=== PATIENT | male | born 1950 | race American Indian/Alaskan Native ===

== ENCOUNTER 2020-12-24 08:20 | Emergency (ER) | payer MEDICARE ==
[2020-12-24 09:18] VITALS: BP 172/96
--- NOTE | 2020-12-24 10:04 | XRay Report ---
RIGHT WRIST 3 VIEWS INDICATION: Right wrist pain after fall. COMPARISON: No relevant prior imaging study available. FINDINGS: No acute, displaced fracture or dislocation is seen. 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 No foreign bodies. IMPRESSION: 1. No acute findings. Signer Name: John Hurtado MD Signed: 12/24/2020 9:59 AM Workstation Name: [id number]
--- NOTE | 2020-12-24 10:07 | Emergency Department Report ---
ED Upper Extremity Inj HPI - General Chief Complaint: Extremity Injury, Upper Stated Complaint: RIGHT ARM INJURY Time Seen by Provider: 12/24/20 09:58 Source: patient Mode of arrival: Ambulatory Limitations: No Limitations - History of Present Illness Initial Comments: Patient is a pleasant 70-year-old -[place] female that comes to the emergency room today after falling the day prior to coming. On interview he is now 24 hours post fall. He was outside playing with his grandson when he had a mechanical fall landing on his wrist. He states that it did not hurt and was not swollen last night but he woke up today and it was swollen. He denies hitting his head. There was no LOC. The fall was witnessed. He states he tripped. He has no other injuries and no other complaints. MD Complaint: Injury to:: right, wrist -: hour(s) Other Extremity Injury: Wrist: Right Other Injuries: none Handedness: right Place: home Improves With: immobilization Worsens With: movement of extremity Context: fall Associated Symptoms: denies other symptoms - Related Data Previous Rx's Medication Instructions Recorded Last Taken Type Ibuprofen [Motrin] 800 mg PO Q8HR PRN #30 tablet 12/24/20 Unknown Rx Allergies Allergy/AdvReac Type Severity Reaction Status Date / Time shellfish derived Allergy Rash Verified 02/10/20 17:08 terbinafine [From Lamisil] Allergy Unknown Verified 02/10/20 17:09 ED Review of Systems ROS: Stated complaint: RIGHT ARM INJURY Other details as noted in HPI Comment: All other systems reviewed and negative ED Past Medical Hx - Past Medical History Previous Medical History?: Yes Hx Hypertension: Yes - Surgical History Past Surgical History?: No - Family History Family history: no significant - Social History Smoking Status: Former Smoker Substance Use Type: None - Medications Home Medications: Home Medications Medication Instructions Recorded Confirmed Last Taken Type Ibuprofen [Motrin] 800 mg PO Q8HR PRN #30 tablet 12/24/20 Unknown Rx ED Physical Exam - General Limitations: No Limitations General appearance: alert, in no apparent distress - Head Head exam: Present: atraumatic, normocephalic - Eye Eye exam: Present: normal appearance - ENT ENT exam: Present: mucous membranes moist - Neck Neck exam: Present: normal inspection - Respiratory Respiratory exam: Present: normal lung sounds bilaterally. Absent: respiratory distress - Cardiovascular Cardiovascular Exam: Present: regular rate, normal rhythm. Absent: systolic murmur, diastolic murmur, rubs, gallop - GI/Abdominal GI/Abdominal exam: Present: soft, normal bowel sounds - Rectal Rectal exam: Present: deferred - Extremities Exam Extremities exam: Present: normal inspection - Expanded Upper Extremity Exam Right Elbow exam: Present: normal inspection Forearm Wrist exam: Present: normal inspection Hand Wrist exam: Present: full ROM (LIMITED WITH PAIN), tenderness, swelling, erythema. Absent: abrasion, laceration, ecchymosis, deformity, crepidus, dislocation, amputation, nail avulsion, subungual hematoma Neuro motor exam: Present: wrist extension intact Vascular: Present: normal capillary refill, radial pulse, ulnar pulse - Back Exam Back exam: Present: normal inspection - Neurological Exam Neurological exam: Present: alert, oriented X3 - Psychiatric Psychiatric exam: Present: normal affect, normal mood - Skin Skin exam: Present: warm, dry, intact, normal color. Absent: rash ED Course Vital Signs 12/24/20 09:17 Temperature 98.8 F Pulse Rate 99 H Respiratory 20 Rate Blood Pressure 172/96 O2 Sat by Pulse 98 Oximetry ED Medical Decision Making - Radiology Data Radiology results: report reviewed, image reviewed neg - Medical Decision Making Vital Signs 12/24/20 09:17 Temperature 98.8 F Pulse Rate 99 H Respiratory 20 Rate Blood Pressure 172/96 O2 Sat by Pulse 98 Oximetry Swelling noted to the right wrist area. X-ray negative. However given the swelling and the pain with movement wrist immobilizer and arm sling was placed for comfort. Area has been iced. Patient has been medicated for pain. Patient being discharged home with follow-up in 48 hours. Patient understands t hat he should use immobilization only temporary to avoid disuse injuries. Patient has remained neurovascularly and peripheral vascularly intact. He has rapid cap refill and full range of motion of his distal fingers. His ulnar and radial pulses are present. This is before and after immobilization. Patient verbalizes understanding of discharge plan of care. - Differential Diagnosis Rule out fracture Critical care attestation.: If time is entered above; I have spent that time in minutes in the direct care of this critically ill patient, excluding procedure time. ED Disposition Clinical Impression: Wrist pain Qualifiers: Laterality: right Qualified Code(s): M25.531 - Pain in right wrist Accident due to mechanical fall without injury Qualifiers: Encounter type: initial encounter Qualified Code(s): W19.XXXA - Unspecified fall, initial encounter Contusion Qualifiers: Encounter type: initial encounter Disposition: TO HOME OR SELFCARE Is pt being admited?: No Does the pt Need Aspirin: No Condition: Stable Instructions: Wrist Splint, Adult, [id number] Additional Instructions: ICE REST ELEVATE SPLINT REST FOR 72 HOURS; MAY TAKE OFF FOR BATHING MED ORDERED TODAY FOR PAIN IF PAIN PERSISTS FOLLOW UP WITH PCP OR ORTHO MD REFERRALS BELOW Prescriptions: Ibuprofen [Motrin] 800 mg PO Q8HR PRN #30 tablet PRN Reason: Pain, Moderate (4-6) Referrals: MORELIA CURRIE MD [Staff Physician] - 3-5 Days ZEENAT PALACIOS MD [Staff Physician] - 3-5 Days Time of Disposition: 10:12
[2020-12-24] MEDS ORDERED: IBUPROFEN 800 MG TAB PO ONE (10:09)
== END 2020-12-24 10:37 | disposition home or self-care (01) ==
LOC: ED 08:20
DX: S60.211A Contusion of right wrist, initial encounter (principal); I10 Essential (primary) hypertension; Z79.1 Long term (current) use of non-steroidal anti-inflammatories (NSAID); Z91.013 Allergy to seafood; Z88.8 Allergy status to other drugs, medicaments and biological substances; W19.XXXA Unspecified fall, initial encounter; Y93.89 Activity, other specified; Y92.89 Other specified places as the place of occurrence of the external cause; Y99.8 Other external cause status